=== PATIENT | female | born 1975 | race Hispanic/Latino ===

== ENCOUNTER 2021-11-25 07:03 | Day surgery (SDC) | payer BC ==
[2021-11-22 13:08] LABS: BASOPHILS % (AUTO) 0.5 % (0.0-5.0); EOSINOPHILS % (AUTO) 6.2 % (0.0-8.0); HEMATOCRIT 29.9 % (36-48); LYMPHOCYTES % (AUTO) 34.7 % (21.0-51.0); MEAN CORPUSCULAR HEMOGLOBIN 28.2 pg (27.0-33.0); MEAN CORPUSCULAR HGB CONC 31.8 g/dL (32.0-36.0); MEAN CORPUSCULAR VOLUME 88.7 fL (79-99); MONOCYTES % (AUTO) 6.4 % (3.0-13.0); NEUTROPHILS % (AUTO) 51.5 % (40.0-77.0); PLATELET COUNT (AUTO) 200 K/uL (130-400); RED BLOOD CELL COUNT(AUTO) 3.37 MIL/uL (4.00-5.50); RED CELL DISTRIBUTION WIDTH 14.3 % (11.0-15.5); WHITE BLOOD COUNT (AUTO) 7.4 K/uL (4.8-10.8)
[2021-11-22 13:25] LABS: CREATININE 2.4 mg/dL (0.5-1.5); POTASSIUM 3.9 mmol/L (3.5-5.1)
[2021-11-22 14:18] VITALS: BP 129/75
[~2021-11-25] VITALS: Ht 170.2 cm; Wt 96.8 kg
[2021-11-25] VITALS (17 sets, daily range): BP systolic 135–152; BP diastolic 64–76
[~2021-11-25 07:03] MED LIST: CALDOLOR 800MG+NS 250ML 250 ML IV SCH; CEFAZOLIN SODIUM 1 GM VIAL IVP SCH; INSU100I21 SQ; LACTATED RINGERS 1000ML 1,000 ML IV SCH; LISI20TA24 PO; MV-M1TAB20 PO
[2021-11-25] MEDS ORDERED: 0.9%NACL 1000ML 1,000 ML IV ONE (07:16)
[2021-11-25] MEDS ORDERED: MIDAZOLAM HCL 1 MG/ML 2ML VIAL ONE (07:52)
[2021-11-25] MEDS ORDERED: LIDOCAINE PF 100MG/5ML (2%) SYRINGE 5ML ONE (08:24)
[2021-11-25] MEDS ORDERED: PROPOFOL 10 MG/ML 20ML VIAL IV ONE (08:24)
[2021-11-25] MEDS ORDERED: FENTANYL CITRATE PF 50 MCG/1 ML 2ML VIAL ONE (08:24)
[2021-11-25] MEDS ORDERED: ONDANSETRON 4MG INJ ONE (08:25)
[2021-11-25] MEDS ORDERED: MEPERIDINE-PF 25 MG/ML SYG ONE ×2 (09:20→09:30)
== END 2021-11-25 10:40 | disposition home or self-care (01) ==
LOC: DAH 07:03
PROVIDERS: ATTEND Obstetrics & Gynecology
DX: N92.1 Excessive and frequent menstruation with irregular cycle (principal); D50.0 Iron deficiency anemia secondary to blood loss (chronic); I10 Essential (primary) hypertension; E78.5 Hyperlipidemia, unspecified; E11.9 Type 2 diabetes mellitus without complications; Z79.899 Other long term (current) drug therapy
CPT/HCPCS: 36415 ×2; 58563; 80048; 82948 ×2; 84703; 85025; 86850 ×2; 86900 ×2; 86901 ×2; 87635; A4351; A4355; A6260; C9803; J0690; J1741; J2001; J2175 ×2; J2250; J2405; J2704; J3010; J7030 ×3

== ENCOUNTER → 2022-02-10 | Outpatient (CLI) | payer BC ==
[~2022-02-10] MED LIST changes: -CALDOLOR 800MG+NS 250ML 250 ML IV SCH; -CEFAZOLIN SODIUM 1 GM VIAL IVP SCH; -LACTATED RINGERS 1000ML 1,000 ML IV SCH
== END | disposition home or self-care (01) ==
LOC: RAH 13:36
PROVIDERS: ATTEND Internal Medicine Nephrology
DX: N28.1 Cyst of kidney, acquired (principal); R94.4 Abnormal results of kidney function studies
CPT/HCPCS: 76770

== ENCOUNTER 2024-06-13 11:12 | Observation (INO) | payer BC ==
[~2024-06-13] VITALS: Ht 170.2 cm; Wt 95.3 kg
[~2024-06-13 11:12] MED LIST changes: -INSU100I21 SQ; +INSU100I22 SQ
[2024-06-13 11:45] LABS: BASOPHILS # (AUTO) 0.05 K/uL (0.00-0.20); BASOPHILS % (AUTO) 0.7 % (0.0-5.0); EOSINOPHILS # (AUTO) 0.49 K/uL (0.00-0.70); EOSINOPHILS % (AUTO) 6.9 % (0.0-8.0); HEMATOCRIT 30.7 % (36-48); IMMATURE GRANULOCYTE ABSOLUTE 0.04 K/uL (0-1); LYMPHOCYTES # (AUTO) 1.7 K/uL (1.0-4.8); LYMPHOCYTES % (AUTO) 23.9 % (21.0-51.0); MEAN CORPUSCULAR HEMOGLOBIN 30.6 pg (27.0-33.0); MEAN CORPUSCULAR HGB CONC 34.5 g/dL (32.0-36.0); MEAN CORPUSCULAR VOLUME 88.7 fL (79-99); MONOCYTES # (AUTO) 0.4 K/uL (0.1-1.0); NEUTROPHILS # (AUTO) 4.4 K/uL (1.8-7.7); NEUTROPHILS % (AUTO) 61.9 % (40.0-77.0); PLATELET COUNT (AUTO) 223 K/uL (130-400); RED BLOOD CELL COUNT(AUTO) 3.46 MIL/uL (4.00-5.50); WHITE BLOOD COUNT (AUTO) 7.1 K/uL (4.8-10.8)
[2024-06-13 11:51] LABS: CREATININE 6.1 mg/dL (0.5-1.0); POTASSIUM 4.1 mmol/L (3.5-5.1)
[2024-06-13 12:38] LABS: B-TYPE NATRIURETIC PEPTIDE 67 pg/mL (0-100)
[2024-06-13 18:35] LABS: APPEARANCE,URINE CLEAR (CLEAR); BILIRUBIN,URINE NEGATIVE (NEGATIVE); COLOR,URINE LIGHT-YELLOW (YELLOW); GLUCOSE, URINE (UA) 300 mg/dL (NEGATIVE); KETONES,URINE NEGATIVE (NEGATIVE); LEUKOCYTE ESTERASE ,URINE NEGATIVE Leu/uL (NEGATIVE); NITRATE,URINE NEGATIVE (NEGATIVE); OCCULT BLOOD,URINE SMALL (NEGATIVE); PROTEIN,URINE 50 mg/dL (NEGATIVE); UROBILINOGEN,URINE 0.2 mg/dL (0.2-1.0)
[2024-06-13 18:42] LABS: ADD UA MICROSCOPIC YES; SQUAMOUS EPITHELIAL CELL,UR RARE /HPF (0-2)
[2024-06-13] MEDS: metoPROLOL tartRATE 25 MG TAB PO SCH (20:31)
[2024-06-13] MEDS: atorVAStatin 40 MG TABLET PO SCH (20:31)
[2024-06-13] MEDS: acetaMINOPHEN 325 MG TAB PO PRN (22:11)
[2024-06-13 22:15] VITALS: O2SAT 100
[2024-06-13] MEDS ORDERED: DULA1.5P SQ (22:35)
[2024-06-13] MEDS ORDERED: GEMF600T89 PO (22:35)
[2024-06-13] MEDS ORDERED: CARV6.25 PO (22:35)
[2024-06-13] MEDS ORDERED: AMLO-258 PO (22:35)
[2024-06-13] MEDS ORDERED: ROSU20TA73 PO (22:35)
[2024-06-13] MEDS ORDERED: FURO40TA5 PO (22:35)
[2024-06-13] MEDS ORDERED: CALC0.253 PO (22:35)
[2024-06-13] MEDS ORDERED: FOLI0.8T43 PO (22:35)
[2024-06-13] MEDS ORDERED: VITA1CAP85 PO (22:35)
[2024-06-13 23:25] VITALS: BP 154/69; PULSE 61; RESP 20; TEMP 98.3; O2SAT 97
[2024-06-14 04:00] VITALS: BP 139/72; PULSE 60; RESP 18; TEMP 97.4
[2024-06-14] MEDS ORDERED: NON-FORMULARY MEDICATION 1 EACH (Dulaglutide (Trulicity) 1.5 MG) SQ SCH (07:00)
[2024-06-14 08:00] VITALS: O2SAT 99
[2024-06-14] MEDS: furoSEMIDE 40 MG TABLET PO SCH (09:00)
[2024-06-14] MEDS: CALCITRIOL 0.25 MCG CAP PO SCH (09:00)
[2024-06-14] MEDS: ASPIRIN 81 MG EC TAB PO SCH (09:00)
[2024-06-14] MEDS: amLODIPine 5 MG TAB PO SCH (09:00)
[2024-06-14] MEDS: gemFIBROzil 600 MG TABLET PO SCH (09:00)
[2024-06-14] MEDS: carVEDIlol 6.25 MG TABLET PO SCH (09:00)
[2024-06-14] MEDS: VITAMIN B COMPLEX 1 CAPSULE PO SCH (09:00)
[2024-06-14] MEDS ORDERED: NON-FORMULARY MEDICATION 1 EACH (Rosuvastatin Calcium 20 MG) PO SCH (09:00)
[2024-06-14] MEDS: Vitamin B Complex/Vit C/Folic Acid PO SCH (09:00)
[2024-06-14 09:16] VITALS: BP 147/76; PULSE 60; RESP 18; TEMP 97.7
[2024-06-14] MEDS ORDERED: PHARMACY COMMUNICATION MISC SCH (10:00)
[2024-06-14] MEDS: REGADENOSON 0.4 MG/5 ML PF SYG IVP SCH (12:53)
[2024-06-21] MEDS ORDERED: (Dulaglutide (Trulicity) 1.5 MG) SQ SCH (09:00)
== END 2024-06-14 18:30 | disposition home or self-care (01) ==
LOC: EDH 11:12 → EDHIP 13:32 → 3DH 22:25
PROVIDERS: ADMIT Internal Medicine; ATTEND Internal Medicine
DX: I13.11 Hypertensive heart and chronic kidney disease without heart failure, with stage 5 chronic kidney disease, or end stage renal disease (principal); I20.0 Unstable angina; Q61.3 Polycystic kidney, unspecified; E11.22 Type 2 diabetes mellitus with diabetic chronic kidney disease; E78.5 Hyperlipidemia, unspecified; D63.1 Anemia in chronic kidney disease; N18.6 End stage renal disease; E87.1 Hypo-osmolality and hyponatremia; E87.8 Other disorders of electrolyte and fluid balance, not elsewhere classified; M94.0 Chondrocostal junction syndrome [Tietze]; E66.9 Obesity, unspecified; Z99.2 Dependence on renal dialysis; Z79.899 Other long term (current) drug therapy; Z98.890 Other specified postprocedural states
CPT/HCPCS: 99285; 82550; 84484 ×2; 80048; 83880; 85025; 82948 ×3; 81001; 36415; 71045; 93306; 93005; 93017; 78452; G0378 ×24; J2785; A9500 ×2

== ENCOUNTER 2024-10-07 11:09 | Emergency (ER) | payer BC ==
[~2024-10-07] VITALS: Ht 170.2 cm; Wt 91.2 kg
[~2024-10-07 11:09] MED LIST changes: +AMLO-258 PO; +CALC0.253 PO; +CARV6.25 PO; +DULA1.5P SQ; +FOLI0.8T43 PO; +FURO40TA5 PO; +GEMF600T89 PO; -INSU100I22 SQ; -LISI20TA24 PO; -MV-M1TAB20 PO; +ROSU20TA98 PO; +VITA1CAP85 PO
--- NOTE | 2024-10-07 12:03 | ERN ---
General Chief Complaint: Pelvic Pain Stated Complaint: SENT BY PHY Time Seen by MD: 11:10 Time Seen by Midlevel: 11:10 Source: patient History of Present Illness Initial Comments Patient is a 49-year-old female with a past medical history of polycystic kidney disease on peritoneal dialysis presenting to the emergency department with suprapubic abdominal pain. She was seen by her primary care doctor earlier today and was sent here for possible peritonitis. Patients specifically denies any fever, chills, diffuse abdominal pain, or any other symptoms at this time. She does report some mild dysuria. According to her primary care doctor she does have a small urine infection but he was concerned that she could be developing peritonitis so she decided to send her to the ER for further evaluation. On arrival patient has no other concerns. Allergies: Coded Allergies: No Known Drug Allergies (Verified Allergy, Unknown, 11/22/21) Home Meds Active Scripts Sulfamethoxazole/Trimethoprim (Bactrim Ds Tablet) 800 Mg-160 Mg Tablet, 1 TAB PO BID for 7 Days, #14 TAB 0 Refills Prov:LEIGHTON GU 10/07/24 Reported Medications Dulaglutide (Trulicity) 1.5 Mg/0.5 Ml Pen.injctr, 1.5 MG SQ AD 06/13/24 Vitamin B Complex (Vitamin B Complex) 1 Each Capsule, 1 EACH PO DAILY, CAP 06/13/24 Rosuvastatin Calcium (Rosuvastatin Calcium) 20 Mg Tablet, 20 MG PO DAILY, TAB 06/13/24 Folic Acid/Vit Bcomp,C (Renal-Bimal Tablet) 0.8 Mg Tablet, 0.8 MG PO DAILY, TAB 06/13/24 Gemfibrozil (Gemfibrozil) 600 Mg Tablet, 600 MG PO DAILY, TAB 06/13/24 Furosemide (Furosemide) 40 Mg Tablet, 40 MG PO DAILY, TAB 06/13/24 Carvedilol (Carvedilol) 6.25 Mg Tablet, 6.25 MG PO DAILY, TAB 06/13/24 Calcitriol (Calcitriol) 0.25 Mcg Capsule, 0.25 MCG PO DAILY, CAP 06/13/24 Amlodipine Besylate (Amlodipine Besylate) 10 Mg Tablet, 10 MG PO DAILY for 30 Days, #30 TAB 0 Refills 06/13/24 Past Medical History Past Medical History: Diabetes-Type II, Hypertension, Renal Failure Past Surgical History: Cholecystectomy Surgical History Other: UTERINE ABLATION Family History Family History: Negative Social History Social History: Negative ROS Dictation CONSTITUTIONAL: Negative except for HPI HEAD/FACE: Negative except for HPI EENT: Negative except for HPI RESPIRATORY: Negative except for HPI GASTROINTESTINAL/ABDOMINAL: Negative except for HPI GENITOURINARY: Negative except for HPI MUSCULOSKELETAL: Negative except for HPI INTEGUMENTARY: Negative except for HPI NEUROLOGICAL/PSYCH: Negative except for HPI HEMATOLOGIC/LYMPHATIC: Negative except for HPI All Systems Negative, Except as noted above. 13 point review of systems assessed and all negative except for above. Physical Exam Physical Exam Dictation Vital Signs reviewed General Appearance: Alert, oriented x 3, no acute distress, well developed, nourished. Head and Face: non-traumatic. Eyes: PERRL, pink conjunctivas, eyelid no trauma, anterior chamber with arcus senilis. Ears: Pinnas intact and no signs of trauma or erythema ear canals clear and no discharge TM no erythema Nose: No discharge, no bleeding. Oropharynx: Mouth normal, tongue pink, pharynx clear,no erythema, tonsils no exudates, no abscesses noted, mucous membrane moist Neck: Supple, non-tender, no thyromegaly, no masses, no JVD, no bruits Breast:Deferred Chest:No tenderness, no crepitus, no paradoxical movement, no retractions Lungs:Clear, well-ventilated, symmetric, no rales, no wheezing, no rhonchi, no stridor, good breath sounds bilaterally Heart: Regular rate, regular rhythm, no murmur, no gallops Vascular: no peripheral edema, Abdomen: Soft, positive bowel sounds, nondistended, no guarding, nontender, no rebound, no masses no hepatomegaly, no splenomegaly, no Urbina's sign, no hernias. Rectal: Deferred Genital: Deferred Neurological: Normal speech, motor function intact, sensory function intact Musculoskeletal: Neck nontender, full range of motion, back nontender, full range of motion, Extremities: nontender, full range of motion Skin: Color pink, dry, no turgor, no rash, no lacerations, no abrasions, no contusions. Lymphatic: Deferred Results Laboratory and Microbiology Lab and Micro Result Laboratory Tests Test 10/07/24 12:02 10/07/24 14:42 Urine Color LIGHT-YELLOW (YELLOW) Urine Appearance CLEAR (CLEAR) Urine pH 6.0 (5.0-8.0) Urine Specific [place] 1.011 (1.001-1.031) Urine Protein 100 mg/dL (NEGATIVE) H Urine Glucose (UA) 200 mg/dL (NEGATIVE) H Urine Ketones NEGATIVE mg/dL (NEGATIVE) Urine Occult Blood SMALL (NEGATIVE) H Urine Nitrate NEGATIVE (NEGATIVE) Urine Bilirubin NEGATIVE mg/dL (NEGATIVE) Urine Urobilinogen 0.2 mg/dL (0.2-1.0) Urine Leukocyte Esterase 25 Ciara/uL (NEGATIVE) H Urine RBC 2-5 /HPF (0-1) H Urine WBC 2-5 /HPF (0-1) H Urine Squamous Epithelial Cells RARE /HPF (0-2) Urine Bacteria RARE /HPF (None Seen) White Blood Count 9.5 K/uL (4.8-10.8) Red Blood Count 3.63 MIL/uL (4.00-5.50) L Hemoglobin 11.4 g/dL (12.0-16.0) L Hematocrit 32.6 % (36-48) L Mean Corpuscular Volume 89.8 fL (79-99) Mean Corpuscular Hemoglobin 31.4 pg (27.0-33.0) Mean Corpuscular Hemoglobin Concent 35.0 g/dL (32.0-36.0) Red Cell Distribution Width 12.6 % (11.0-15.5) Platelet Count 271 K/uL (130-400) Mean Platelet Volume 10.4 fL (7.5-10.5) Immature Granulocyte % (Auto) 0.5 % (0-1) Neutrophils (%) (Auto) 59.2 % (40.0-77.0) Lymphocytes (%) (Auto) 26.3 % (21.0-51.0) Monocytes (%) (Auto) 5.6 % (3.0-13.0) Eosinophils (%) (Auto) 7.3 % (0.0-8.0) Basophils (%) (Auto) 1.1 % (0.0-5.0) Neutrophils # (Auto) 5.6 K/uL (1.8-7.7) Lymphocytes # (Auto) 2.5 K/uL (1.0-4.8) Monocytes # (Auto) 0.5 K/uL (0.1-1.0) Eosinophils # (Auto) 0.69 K/uL (0.00-0.70) Basophils # (Auto) 0.10 K/uL (0.00-0.20) Absolute Immature Granulocyte (auto 0.05 K/uL (0-1) Nucleated Red Blood Cells 0.0 % (0.0-0.19) Sodium Level 139 mmol/L (136-145) Potassium Level 3.6 mmol/L (3.5-5.1) Chloride Level 101 mmol/L (101-111) Carbon Dioxide Level 26 mmol/L (21-32) Blood Urea Nitrogen 56 mg/dL (7-18) H Creatinine 7.5 mg/dL (0.5-1.0) H Glomerular Filtration Rate Calc 6 mL/min (>90) Random Glucose 253 mg/dL (70-105) H Total Calcium 8.3 mg/dL (8.5-10.1) L Troponin I High Sensitivity 23 ng/L (4-50) B-Type Natriuretic Peptide 81 pg/mL (0-100) Labs Reviewed?: Yes MDM MDM: Patient is a 49-year-old female with a past medical history of polycystic kidney disease on peritoneal dialysis presenting to the emergency department with suprapubic abdominal pain. She was seen by her primary care doctor earlier today and was sent here for possible peritonitis. Patients specifically denies any fever, chills, diffuse abdominal pain, or any other symptoms at this time. She does report some mild dysuria. According to her primary care doctor she does have a small urine infection but he was concerned that she could be developing peritonitis so she decided to send her to the ER for further evaluation. On arrival patient has no other concerns. Initial vital signs are stable. Patient is afebrile and nontoxic appearing. On physical examination patient is in no acute distress. There is no abdominal tenderness, rebound, or guarding. There was no surrounding erythema or induration to the peritoneal dialysis insertion catheter. Her CBC does not show an elevated white blood cell count. Her chemistries are stable. Her urinalysis shows evidence of infection. The patient was given antibiotics in the emergency department and will be discharged home with oral antibiotics. There are no signs for peritonitis at this time. We attempted to collect a body fluid cell count but patient states she does not drain until tomorrow morning. I Offered admission for observation patient declines. She states she will be following up with the primary care doctor. She states that if she was able to return tomorrow after she performs her peritoneal dialysis for blood work she will. I advised that she report to her primary care doctor return to the ER if she develops any new or worsening symptoms. Differential diagnosis: Peritonitis, urinary tract infection, electrolyte abnormality There are no social concerns with this patient. Prescription drug management Prescriptions will include: Bactrim Medical management and examination interpretation discussions were had by me with other qualified healthcare professionals as indicated for the patient's car e. ED Course Orders Procedure Category Date Status Time Urinalysis Profile LAB 10/07/24 Complete 11:27 Cbc With Differential LAB 10/07/24 Complete 11:27 Basic Metabolic Panel LAB 10/07/24 Complete 11:27 Troponin I High LAB 10/07/24 Complete Sensitivity 11:27 B-Type Natriuretic LAB 10/07/24 Complete Peptide 11:27 Hydralazine 20mg Inj PHA 10/07/24 Complete (Apresoline 20mg In 12:30 *Nursing CPOE 10/07/24 Transmitted Communication: 12:45 Body Fluid Cult W/ JIMENA 10/07/24 Logged Gram Stain 14:36 Body Fluid Cell Count LAB 10/07/24 Logged 14:36 Ceftriaxone 1g Vial PHA 10/07/24 Complete (Rocephine 1g Inj) 16:00 Current Medications Medications (Trade) Dose Ordered Sig/Dawna Route PRN Reason Start Time Stop Time Status Last Admin Dose Admin Ceftriaxone Sodium (ROCEphine 1G INJ) 1 gm ONCE ONCE IVPB 10/07/24 16:00 10/07/24 16:01 DC 10/07/24 16:11 Hydralazine HCl (APRESOLine 20MG INJ) 10 mg ONCE ONCE IV 10/07/24 12:30 10/07/24 12:31 DC 10/07/24 15:03 Vital Signs Date Time Temp Pulse Resp B/P (MAP) Pulse Ox O2 Delivery O2 Flow Rate FiO2 10/07/24 15:51 98.2 70 16 166/75 98 Room Air* 0 21 10/07/24 15:30 98.2 70 16 184/79 98 Room Air* 0 21 10/07/24 14:54 98.2 72 16 192/80 98 Room Air* 0 21 10/07/24 11:21 98.2 80 16 195/77 98 Room Air 0 10/07/24 11:21 98.2 80 16 195/77 99 Room Air* 0 21 DX & DISP Disposition: Discharge Departure Impression: Primary Impression: Urinary tract infection Additional Impression: History of polycystic kidney disease Condition: Stable Scripts Sulfamethoxazole/Trimethoprim (Bactrim Ds Tablet) 800 Mg-160 Mg Tablet 1 TAB PO BID for 7 Days, #14 TAB 0 Refills Prov: LEIGHTON GU 10/07/24 Additional Instructions: Your blood work today is stable. Your white blood cell count is normal. Your urinalysis shows a mild urinary tract infection which could represent an early UTI. You were given IV antibiotics in the emergency department and will be discharged home with oral antibiotics. Please follow up with your primary care doctor next week for repeat evaluation. Return to the ER if you develop any new or worsening symptoms as discussed. Referrals: NORMA ANTONIO (PCP) Time of Disposition: 16:12 I have reviewed the case, and I agree with, Diagnosis and Plan I performed the substantive portion of the visit. I have reviewed and personally made and approve the management plan that is documented in the note by myself or the DAVINA. I acknowledge for responsibility for the patient's management plan. LEIGHTON GU Oct 07, 2024 12:03
[2024-10-07 12:22] LABS: APPEARANCE,URINE CLEAR (CLEAR); BILIRUBIN,URINE NEGATIVE (NEGATIVE); COLOR,URINE LIGHT-YELLOW (YELLOW); GLUCOSE, URINE (UA) 200 mg/dL (NEGATIVE); KETONES,URINE NEGATIVE (NEGATIVE); LEUKOCYTE ESTERASE ,URINE 25 Leu/uL (NEGATIVE); NITRATE,URINE NEGATIVE (NEGATIVE); OCCULT BLOOD,URINE SMALL (NEGATIVE); PROTEIN,URINE 100 mg/dL (NEGATIVE); UROBILINOGEN,URINE 0.2 mg/dL (0.2-1.0)
[2024-10-07 12:39] LABS: ADD UA MICROSCOPIC YES
[2024-10-07 12:40] LABS: BACTERIA,URINE RARE /HPF (None Seen); SQUAMOUS EPITHELIAL CELL,UR RARE /HPF (0-2)
--- NOTE | 2024-10-07 14:47 | NUR ---
PT PLACED IN ROOM 13 AT THIS TIME ASSUMED CARE AT THIS TIME
[2024-10-07 15:03] LABS: BASOPHILS % (AUTO) 1.1 % (0.0-5.0); EOSINOPHILS # (AUTO) 0.69 K/uL (0.00-0.70); EOSINOPHILS % (AUTO) 7.3 % (0.0-8.0); HEMATOCRIT 32.6 % (36-48); IMMATURE GRANULOCYTE ABSOLUTE 0.05 K/uL (0-1); LYMPHOCYTES # (AUTO) 2.5 K/uL (1.0-4.8); LYMPHOCYTES % (AUTO) 26.3 % (21.0-51.0); MEAN CORPUSCULAR HEMOGLOBIN 31.4 pg (27.0-33.0); MEAN CORPUSCULAR VOLUME 89.8 fL (79-99); MONOCYTES # (AUTO) 0.5 K/uL (0.1-1.0); MONOCYTES % (AUTO) 5.6 % (3.0-13.0); NEUTROPHILS # (AUTO) 5.6 K/uL (1.8-7.7); NEUTROPHILS % (AUTO) 59.2 % (40.0-77.0); PLATELET COUNT (AUTO) 271 K/uL (130-400); RED BLOOD CELL COUNT(AUTO) 3.63 MIL/uL (4.00-5.50); RED CELL DISTRIBUTION WIDTH 12.6 % (11.0-15.5); WHITE BLOOD COUNT (AUTO) 9.5 K/uL (4.8-10.8)
[2024-10-07] MEDS: hydrALAZine 20MG/ML VIAL IV ONE (15:03)
[2024-10-07 15:20] LABS: CREATININE 7.5 mg/dL (0.5-1.0); POTASSIUM 3.6 mmol/L (3.5-5.1)
[2024-10-07 16:02] LABS: B-TYPE NATRIURETIC PEPTIDE 81 pg/mL (0-100)
[2024-10-07] MEDS: cefTRIAXone 1G VIAL IVPB ONE (16:11)
[2024-10-07] MEDS ORDERED: SULF1TAB42 PO (16:12)
[2024-10-07 16:57] VITALS: BP 161/78; PULSE 72; RESP 16; TEMP 98.2; O2SAT 98
== END 2024-10-07 17:19 | disposition home or self-care (01) ==
LOC: EDH 11:09
DX: N39.0 Urinary tract infection, site not specified (principal); Q61.3 Polycystic kidney, unspecified; E11.9 Type 2 diabetes mellitus without complications; I10 Essential (primary) hypertension; Z79.899 Other long term (current) drug therapy; Z90.49 Acquired absence of other specified parts of digestive tract; Z99.2 Dependence on renal dialysis
CPT/HCPCS: 99284; 96365; 96375; 84484; 80048; 83880; 85025; 87071; 87205; 81001; 36415; J0360; J0696